=== PATIENT | male | born 1935 | race Asian ===

== ENCOUNTER → 2023-04-12 | Outpatient (CLI) | payer MEDICARE, OTHER ==
[~2023-04-12] MED LIST: AMLO-258 PO; CARV3 PO; ENOX80SY SQ; PANT-31 PO; WARF7.5T7 PO; [UNRECOGNIZED DRUG - CODE] PO
== END | disposition home or self-care (01) ==
LOC: LABMN 09:46
PROVIDERS: ATTEND Internal Medicine Geriatric Medicine
DX: M43.8X4 Other specified deforming dorsopathies, thoracic region (principal); I70.0 Atherosclerosis of aorta; I51.7 Cardiomegaly; R07.9 Chest pain, unspecified; M54.50 Low back pain, unspecified
CPT/HCPCS: 71046; 72100